=== PATIENT | male | born 1960 | race Caucasian/White ===

== ENCOUNTER 2017-07-19 07:20 | Emergency (ER) | payer BC, SELFPAY ==
[2017-07-19 07:22] VITALS: BP 157/46; PULSE 62; RESP 18; TEMP 36.6; O2SAT 98; BMI 28.2
--- NOTE | 2017-07-19 07:29 | CT_ITS ---
STUDY: CT ABDOMEN AND PELVIS WITHOUT CONTRAST REASON FOR EXAM: Male, 56 years old. Left flank pain. History of prior diverticulitis. RADIATION DOSAGE (If Supplied By Facility): CTDIvol = ( 7.04 ) mGy, DLP = ( 379.91 ) mGycm TECHNIQUE: Transaxial images were obtained from the dome of the diaphragm to the symphysis pubis without oral contrast, and without intravenous contrast. Sagittal and coronal images were reconstructed. Individualized dose optimization techniques were used for this CT. COMPARISON: None. FINDINGS: Mild degree of bilateral basilar atelectasis. The visualized portions of the heart are within normal limits. Normal liver. Normal gallbladder and extrahepatic biliary system. Normal spleen. Normal pancreas. Normal bilateral adrenal glands. Normal right kidney. Mild degree of the left hydronephrosis and prominent left hydroureter due to a 4.7 mm calculus at the left ureterovesical junction as it enters the urinary bladder. Normal visualized stomach. Normal small intestine. There is evidence of a sigmoid resection and anastomosis. The appendix is visualized and appears normal. There is scattered atherosclerotic calcification of the abdominal aorta, without a demonstrated aneurysm. Normal inferior vena cava. Normal retroperitoneum. Normal urinary bladder. There are dense and large prostatic calcifications. The prostate causes an indentation at the bladder base. There is a small umbilical hernia containing fat. There is evidence of prior ventral hernia repair with a mesh. There is eventration of the anterior abdominal wall at the level of the hernia repair. There is no evidence of bowel obstruction. There are mild degenerative changes of the visualized lumbar spine. CT/Abdomen/Pelvis without Cont IMPRESSION: 4.7 mm calculus at the left ureterovesical junction causing mild degree of left hydronephrosis and left hydroureter. Dense prostatic calcification. Electronically Signed: Uriel Jorgensen MD at 8:26 EST Tel [phone], Service support ,
[2017-07-19] MEDS: 0.9% Normal Saline 1,000 ML 125 ML IV (07:47)
[2017-07-19 07:55] LABS: Color, Urine Yellow (Yellow); Glucose, Dipstick Normal (Normal); Ketone-Dipstick Negative (Negative); Leukocyte Esterase-Dipstick 500 /ul (Negative); Nitrite-Dipstick Negative (Negative); Occult Blood-Urine 250 /ul (Negative); Protein-Dipstick 15 mg/dl (Negative); Urine Bilirubin Dipstick Negative (Negative); Urine Clarity Sl. Cloudy (Clear); Urine Urobilinogen Normal (Normal)
[2017-07-19 07:56] LABS: Absolute Lymphocyte Count 1.01 X10^3/ul (0.83-4.51); Absolute Neutrophil Count 6.2 X10^3/uL (2.0-7.7); Basophil# 0.04 X10^3/uL; Basophil% 0.5 % (0-1); Eosinophils% 1.3 % (0-5); Hematocrit 47.2 % (40-54); Hemoglobin 16.2 g/dl (13.0-16.5); Lymphocyte # 1.01 X10^3/ul (4.0); Lymphocyte % 12.7 % (19-41); Mean Corp Hgb Conc 34.3 g/gl (32-36); Mean Corpuscular Hgb 30.3 pg (27.0-32.0); Mean Corpuscular Volume 88.4 fL (80-94); Mean Platelet Vol. 10.2 fl (6.2-12.0); Monocyte# 0.55 X10^3/uL; Monocyte% 6.9 % (0-10); Neutrophil # 6.22 X10^3/uL (2.7-7.7); Neutrophil % 78.5 % (47-70); Platelet Count 172 K/mm3 (150-450); RBC Distribution Width CV 12.6 % (11.6-14.6); Red Blood Count 5.34 M/mm3 (4.6-6.2); White Blood Count 7.9 K/mm3 (4.4-11.0)
[2017-07-19 07:57] LABS: POSITIVE COUNT NO; POSITIVE DIFFERENTIAL NO; POSITIVE MORPHOLOGY NO
[2017-07-19 08:03] LABS: Anion Gap 5 (5-15); BUN 22 mg/dL (7-18); BUN/Creat Ratio 23.8 RATIO (10-20); Bacteria 1+ /hpf (None Seen); Calcium,Total 8.6 mg/dL (8.5-10.1); Chloride 105 mmol/L (98-107); Creatinine, Serum 0.93 mg/dL (0.70-1.30); EST Glomerular Filtration Rate 90 mL/min (>60); Est Glom Filt Rate - Afr Amer 108 mL/min (>60); Estimated Creatinine Clearance 80.04 ml/min; Glucose 103 mg/dL (74-106); Mucous, Urine 1+ /hpf (<or=2+); Potassium 4.2 mmol/L (3.5-5.1); Red Blood Cells-Urine 5-10 SEEN /hpf (0-5); Sodium Level 140 mmol/L (136-145); Squamous Epithelial Cells - UA 0-5 SEEN /hpf (0-5); White Blood Cells 5-10 SEEN /hpf (0-5)
--- NOTE | 2017-07-19 08:37 | ED.VISSUMM ---
- ER Visit Summary Date of Service: 07/19/17 Chief Complaint: [Abdominal pain] History of Present Illness: The patient is a 56 M [presents the emergency department with abdominal discomfort that started about an hour ago suddenly. Patient describes it as initially starting his left flank and now more localized to his left lower quadrant. Patient had sweats with it. Denies any nausea or vomiting. Patient did feel the urge to urinate when this was happening. She denies any fever. Patient denies any blood in his stool or black tarry stools.] Physical Examination: HEENT-PERRLA, EOMI. Cranial nerves II through XII grossly intact. TMs clear. Mucous membranes moist. No adenopathy. Cardiovascular-regular rate and rhythm without murmur or ectopy Lungs-clear to auscultation, chest wall stable without crepitus or subcu emphysema Abdomen-normoactive bowel sounds, soft patient has tenderness palpation over left lower quadrant with some guarding. There is no rebound, rigidity, or perineal signs. Patient also has some mild CVA tenderness on the left. Extremities-intact ?4, normal range of motion, normal pulses, atraumatic] Test Results: [CBC with differential was normal. Chemistries were normal. Urinalysis showed 5-10 WBCs and 5-[address] flank showed a 4.7 mm stone at the left UVJ. Patient had mild hydronephrosis on the left.] Emergency Department Course and Treatment: [Patient initially did not want anything for pain as he rated his pain a 2 out of 10. Prior to discharge he wanted some pain medicine as he planned on driving home to [place] which is 5 hours away. I did give patient 30 mg of Toradol IV.] Treatment Plan: [Patient will be given urine strainers and a prescription for naproxen and 12 [place] for severe pain.] Disposition: [Discharged home in stable condition. Patient advised to return if worsening pain, fever, or condition should worsen in any way.] Impression: [Left urolithiasis with colic] This note was generated with [employer] dictation software. It may contain incorrect words, spelling, and punctuation that were not noted in review of the chart prior to signing ED Disposition - Plan for ED Patient: Chief Complaint: Abd Pain Referrals: Care Physician,No Primary [Primary Care Provider] -
--- NOTE | 2017-07-19 08:40 | ED.DCSUM_ITS ---
- ER Visit Summary Date of Service: 07/19/17 Chief Complaint: [Abdominal pain] History of Present Illness: The patient is a 56 M [presents the emergency department with abdominal discomfort that started about an hour ago suddenly. Patient describes it as initially starting his left flank and now more localized to his left lower quadrant. Patient had sweats with it. Denies any nausea or vomiting. Patient did feel the urge to urinate when this was happening. She denies any fever. Patient denies any blood in his stool or black tarry stools.] Physical Examination: HEENT-PERRLA, EOMI. Cranial nerves II through XII grossly intact. TMs clear. Mucous membranes moist. No adenopathy. Cardiovascular-regular rate and rhythm without murmur or ectopy Lungs-clear to auscultation, chest wall stable without crepitus or subcu emphysema Abdomen-normoactive bowel sounds, soft patient has tenderness palpation over left lower quadrant with some guarding. There is no rebound, rigidity, or perineal signs. Patient also has some mild CVA tenderness on the left. Extremities-intact ?4, normal range of motion, normal pulses, atraumatic] Test Results: [CBC with differential was normal. Chemistries were normal. Urinalysis showed 5-10 WBCs and 5-[address] flank showed a 4.7 mm stone at the left UVJ. Patient had mild hydronephrosis on the left.] Emergency Department Course and Treatment: [Patient initially did not want anything for pain as he rated his pain a 2 out of 10. Prior to discharge he wanted some pain medicine as he planned on driving home to [place] which is 5 hours away. I did give patient 30 mg of Toradol IV.] Treatment Plan: [Patient will be given urine strainers and a prescription for naproxen and 12 [place] for severe pain.] Disposition: [Discharged home in stable condition. Patient advised to return if worsening pain, fever, or condition should worsen in any way.] Impression: [Left urolithiasis with colic] This note was generated with [employer] dictation software. It may contain incorrect words, spelling, and punctuation that were not noted in review of the chart prior to signing ED Disposition - Plan for ED Patient: Chief Complaint: Abd Pain Referrals: Care Physician,No Primary [Primary Care Provider] -
--- NOTE | 2017-07-19 08:40 | ED.DEP ---
ED Disposition - Plan for ED Patient: Chief Complaint: Abd Pain Instructions: ED Stone Renal W Colic Prescriptions: Hydrocodone Bitart/Apap 5-325 [[place] 5/325] 1 - 2 tab PO Q4H PRN PRN 3 Days #12 tab PRN Reason: Pain Naproxen [Naprosyn] 500 mg PO BID PRN #20 tab Referrals: Care Physician,No Primary [Primary Care Provider] - 3-5 Days
[2017-07-19] MEDS: Ketorolac 30 MG/ML Syringe IV (08:50)
== END 2017-07-19 09:00 | disposition home or self-care (01) ==
PROVIDERS: Emergency Provider Emergency Medicine
DX: N20.9 Urinary calculus, unspecified (principal); N23 Unspecified renal colic
CPT/HCPCS: 74176; 80048; 81001; 85025; 96361; 96374; 99283; J7030